=== PATIENT | male | born 1970 | race Caucasian/White ===

== ENCOUNTER 2021-02-28 11:07 | Emergency (ER) | payer OTHER ==
[~2021-02-28] VITALS: Ht 188 cm; Wt 117.9 kg
[~2021-02-28 11:07] MED LIST: CIPRO500 MG PO; CYCL10 PO; Colace100 MG PO; Flomax0.4 MG PO; HYDACE5 PO; LISI10 PO; NAPR500 PO; OXYACE10 PO; OXYACE5T PO; PENVK500 PO; Percocet 5-3251 EACH PO; Percocet 7.5-31 EACH PO; RXOXYACE PO
[2021-02-28] MEDS ORDERED: IBU800 MG PO (11:28)
[2021-02-28] MEDS ORDERED: DEXT30SU PO (11:28)
== END 2021-02-28 11:42 | disposition home or self-care (01) ==
LOC: ER 11:07
DX: U07.1 COVID-19 (principal); I10 Essential (primary) hypertension; F17.200 Nicotine dependence, unspecified, uncomplicated
CPT/HCPCS: 99283

== ENCOUNTER 2022-03-10 06:54 | Day surgery (SDC) | payer OTHER ==
[~2022-03-10] VITALS: Ht 177.8 cm; Wt 111.2 kg
[~2022-03-10 06:54] MED LIST changes: +DEXT30SU PO; +IBU800 MG PO
[2022-03-10] MEDS ORDERED: KETOROLAC TROMET5 M3 OP (07:40)
[2022-03-10] MEDS ORDERED: COLLAGEN 15001 EACH (07:40)
[2022-03-10] MEDS ORDERED: VITAMIN D310 MC4 PO (07:41)
--- NOTE | 2022-03-10 07:48 | NUR ---
03/10/22 0748 [employer]elo Painting AT 0740 PLEDGET AT 0712
== END 2022-03-10 09:14 | disposition home or self-care (01) ==
LOC: ORSCSDS 06:54
PROVIDERS: Ophthalmology
PROC: 08RJ3JZ Replacement of Right Lens with Synthetic Substitute, Percutaneous Approach (ICD-10-PCS; principal; 2022-03-10 08:30)
DX: H25.11 Age-related nuclear cataract, right eye (principal); E66.9 Obesity, unspecified; Z68.35 Body mass index [BMI] 35.0-35.9, adult
CPT/HCPCS: J2001; J2250; J3010; J3301; J7040; V2632

== ENCOUNTER → 2023-03-28 | Outpatient (CLI) | payer OTHER ==
[~2023-03-28] MED LIST changes: +COLLAGEN 15001 EACH; +KETOROLAC TROMET5 M3 OP; +VITAMIN D310 MC4 PO
[2023-03-28 19:21] LABS: BASOPHILS ABSOLUTE AUTO 0.04 K/mm3 (0.00-0.23); BASOPHILS PERCENT AUTO 1 % (0-2); EOSINOPHILS ABSOLUTE AUTO 0.19 K/mm3 (0.00-0.68); EOSINOPHILS PERCENT AUTO 3 % (0-6); Hematocrit 46.7 % (37.0-53.0); IMMATURE GRAN ABSOLUTE AUTO 0.03 K/mm3 (0.00-0.10); IMMATURE GRAN PERCENT AUTO 0 % (0-1); LYMPHOCYTES ABSOLUTE AUTO 2.32 K/mm3 (0.84-5.20); LYMPHOCYTES PERCENT AUTO 32 % (21-46); MONOCYTES ABSOLUTE AUTO 0.55 K/mm3 (0.16-1.47); MONOCYTES PERCENT AUTO 8 % (4-13); Mean Corpuscular HGB 28.2 pg (26.0-34.0); Mean Corpuscular HGB Conc 34.3 g/dL (31.5-36.5); Mean Corpuscular Volume 82 fL (80-100); Mean Platelet Volume 10.7 fL (9.1-12.4); NEUTROPHILS ABSOLUTE AUTO 4.03 K/mm3 (1.96-9.15); NEUTROPHILS PERCENT AUTO 56 % (41-73); Platelet Count 209 K/mm3 (150-400); RDW Coefficient Variation 12.7 % (11.7-14.2); RDW Standard Deviation 38.4 fL (35.1-46.3); Red Blood Cell Count 5.68 M/mm3 (4.30-5.90); White Blood Cell Count 7.16 K/mm3 (4.00-11.30)
[2023-03-29 01:07] LABS: Thyroid Stimulating Hormone 1.06 uIU/mL (0.360-4.800)
[2023-03-29 01:08] LABS: Albumin/Globulin Ratio 1.5 (0.8-1.8); Bilirubin, Total 0.5 mg/dL (0.1-1.0); Bun/Creatinine Ratio 16.2 (12.0-20.0); Calcium, Blood 8.9 mg/dL (8.5-10.1); Creatinine, Blood 0.8 mg/dL (0.60-1.20); Globulin, Blood 2.7 g/dL (2.2-4.0); Potassium, Blood 4.1 mmol/L (3.5-5.5); Total Protein, Blood 6.7 g/dL (6.4-8.2)
[2023-03-30 06:12] LABS: HIV AB/P24 AG SCREEN Non Reactive (Non Reactive)
== END | disposition home or self-care (01) ==
LOC: LAB SHORT 15:02 → LAB 15:02
PROVIDERS: Nurse Practitioner Family
DX: Z11.59 Encounter for screening for other viral diseases (principal); I10 Essential (primary) hypertension; R73.01 Impaired fasting glucose
CPT/HCPCS: 80053; 83036; 84443; 85025; 86803; 87389

== ENCOUNTER 2023-09-08 07:29 | Emergency (ER) | payer OTHER ==
[~2023-09-08] VITALS: Ht 175.3 cm; Wt 108.9 kg
[2023-09-08] MEDS ORDERED: HYDR1TAB94 PO (10:48)
[2023-09-08] MEDS ORDERED: Bactrim Ds Tab1 EACH PO (10:50)
[2023-09-08] MEDS ORDERED: Trimethoprim/Sulfamethoxazole DS Tab PO ONE (10:50)
[2023-09-08 11:00] VITALS: BP 145/76
== END 2023-09-08 11:01 | disposition home or self-care (01) ==
LOC: ER 07:29
DX: L02.512 Cutaneous abscess of left hand (principal); L03.012 Cellulitis of left finger; Z79.899 Other long term (current) drug therapy; I10 Essential (primary) hypertension
CPT/HCPCS: 26011; 73140; 99283-25; A9270